=== PATIENT | female | born 1970 | race Caucasian/White ===

== ENCOUNTER 2016-09-27 10:36 | Emergency (ER) | payer OTHER ==
[~2016-09-27] VITALS: Ht 175.3 cm; Wt 109.0 kg
[~2016-09-27 10:36] MED LIST: ALEVE220 MG PO; CELEXA20 MG PO; DIOVAN80 MG PO; HYDROCHLOROTHIA25 MG PO; IBUPROFEN600 MG PO; LISINOPRIL20 MG PO; LOPRESSOR100 M1 PO; Levaquin PO; TOPIRAMATE50 MG PO; TORADOL10 MG PO; ULTRAM50 MG PO
[2016-09-27 12:10] LABS: HEMATOCRIT 36.7 % (36.0-46.0); MCH 29.9 PG (29.0-34.0); MCV 90.6 FL (83-99); MEAN PLAT.VOLUME 9.8 uM^3 (9.5-12.4); PLATELET COUNT 266 K/uL (156-360); RBC DIS.WIDTH-CV 13.1 % (11.8-14.6); RBC DIS.WIDTH-SD 42.2 % (39-53); RED BLOOD COUNT 4.05 M/uL (3.80-5.20); WHITE BLOOD COUNT 6.1 K/uL (4.1-10.2)
[2016-09-27 12:21] LABS: CHLORIDE 114 mEq/L (99-109); SODIUM 139 mEq/L (136-147)
[2016-09-27 12:23] LABS: GLUCOSE 89 mg/dL (70-99)
[2016-09-27 12:25] LABS: ANION GAP 6 MEQ/L (2-14)
[2016-09-27 12:27] LABS: GFR ESTIMATE (CALCULATED) > 59 mL/min/
[2016-09-27 12:28] LABS: UREA NITROGEN (BUN) 13 mg/dL (9-23)
[2016-09-27 13:41] LABS: ADD MIUA? YES; BILIRUBIN NEGATIVE; BLOOD NEGATIVE; COLOR STRAW ((YELLOW)); GLUCOSE (STRIP) NEGATIVE; KETONES NEGATIVE; LEUKOCYTES TRACE; NITRITE NEGATIVE; PROTEIN (STRIP) NEGATIVE; SPECIFIC GRAVITY 1.018 (1.000-1.030); UROBILINOGEN 0.2 MG/DL (0.2-1.0)
[2016-09-27 13:44] LABS: BACTERIA RARE /HPF; EPITHELIAL CELLS RARE /HPF; MUCUS TRACE /LPF; UCUL ADDED? NO; WHITE BLOOD CELLS 0-5 /HPF (0-5)
[2016-09-27 14:50] LABS: TOTAL BILIRUBIN 0.6 mg/dL (0.0-1.0)
[2016-09-27 14:51] LABS: ALKALINE PHOSPHATASE 78 IU/L (3-129)
[2016-09-27 14:53] LABS: DIRECT BILIRUBIN 0.2 mg/dL (0.0-0.3)
[2016-09-27 14:54] LABS: LIPASE 9 U/L (1.0-51.0)
[2016-09-27] MEDS ORDERED: TRAMADOL HCL50 MG PO (15:08)
[2016-09-27] MEDS ORDERED: SKELAXIN800 MG PO (15:08)
[2016-09-27] MEDS ORDERED: NAPROSYN500 MG PO (15:10)
[2016-09-27 15:27] VITALS: BP 143/100
== END 2016-09-27 15:29 | disposition home or self-care (01) ==
LOC: EME → EDBD 10:36 → EME 10:36
PROVIDERS: Physician Assistant
DX: S16.1XXA Strain of muscle, fascia and tendon at neck level, initial encounter (principal); S46.912A Strain of unspecified muscle, fascia and tendon at shoulder and upper arm level, left arm, initial encounter; K81.9 Cholecystitis, unspecified; V49.40XA Driver injured in collision with unspecified motor vehicles in traffic accident, initial encounter
CPT/HCPCS: 70450; 72050; 72125; 73030; 74177; 80048; 80076; 81003; 83690; 85027; 99281; 99283; J3360; J7030

== ENCOUNTER 2016-11-25 03:50 | Day surgery (SDC) | payer OTHER ==
[~2016-11-25] VITALS: Ht 182.9 cm; Wt 112.4 kg
[~2016-11-25 03:50] MED LIST changes: +NAPROSYN500 MG PO; +SKELAXIN800 MG PO; +TRAMADOL HCL50 MG PO
[2016-11-25 04:54] LABS: BASOPHIL COUNT 0.1 K/uL (0-0.1); EOSINOPHIL (%) 3.9 % (0-5); EOSINOPHIL COUNT 0.3 K/uL (0-0.3); HEMATOCRIT 36.7 % (36.0-46.0); IMMATURE GRANULOCYTE (%) 0.5 % (0.0-0.7); INSTRUMENT ABS NEUTROPHIL CT 4.2 K/uL; LYMPHOCYTE COUNT 2.4 K/uL (1.0-2.8); MCHC 33.2 G/DL (30.0-36.0); MCV 90.4 FL (83-99); MEAN PLAT.VOLUME 9.9 uM^3 (9.5-12.4); MONOCYTE (%) 7.6 % (3-12); MONOCYTE COUNT 0.6 K/uL (0-0.8); NEUTROPHIL (%) 55.6 % (45-76); NEUTROPHIL COUNT 4.2 K/uL (1.8-6.4); PLATELET COUNT 289 K/uL (156-360); RBC DIS.WIDTH-CV 13.2 % (11.8-14.6); RBC DIS.WIDTH-SD 43.8 % (39-53); RED BLOOD COUNT 4.06 M/uL (3.80-5.20); WHITE BLOOD COUNT 7.6 K/uL (4.1-10.2)
[2016-11-25 04:56] LABS: CHLORIDE 111 mEq/L (99-109); POTASSIUM 3.7 mEq/L (3.7-5.4); SODIUM 136 mEq/L (136-147)
[2016-11-25 04:58] LABS: GLUCOSE 98 mg/dL (70-99)
[2016-11-25 04:59] LABS: ANION GAP 7 MEQ/L (2-14)
[2016-11-25 05:00] LABS: TOTAL BILIRUBIN 0.3 mg/dL (0.0-1.0)
[2016-11-25 05:01] LABS: ALKALINE PHOSPHATASE 86 IU/L (3-129)
[2016-11-25 05:02] LABS: GFR ESTIMATE (CALCULATED) > 59 mL/min/
[2016-11-25 05:03] LABS: UREA NITROGEN (BUN) 13 mg/dL (9-23)
[2016-11-25 05:05] LABS: LIPASE 12 U/L (1.0-51.0)
[2016-11-25 05:50] LABS: ADD MIUA? YES; BILIRUBIN NEGATIVE; BLOOD SMALL; COLOR YELLOW ((YELLOW)); GLUCOSE (STRIP) NEGATIVE; KETONES NEGATIVE; LEUKOCYTES LARGE; NITRITE NEGATIVE; PROTEIN (STRIP) NEGATIVE; SPECIFIC GRAVITY 1.013 (1.000-1.030); UROBILINOGEN 0.2 MG/DL (0.2-1.0)
[2016-11-25 05:54] LABS: BACTERIA RARE /HPF; EPITHELIAL CELLS 1+ /HPF; MUCUS TRACE /LPF; RED BLOOD CELLS 20-30 /HPF (0-5); UCUL ADDED? NO
[2016-11-25] MEDS ORDERED: VALSARTAN160 MG PO (08:33)
[2016-11-25] MEDS ORDERED: HYDROCODON-ACE1 EAC7 PO (15:11)
[2016-11-25] MEDS ORDERED: OXYCODONE-APAP1 EACH PO (15:11)
[2016-11-25 17:04] VITALS: BP 142/82
[2016-11-25 23:28] VITALS: BP 117/70
[2016-11-26 04:20] VITALS: BP 120/76
[2016-11-26 07:07] VITALS: BP 121/76
[2016-11-26] MEDS ORDERED: TAMSULOSIN HCL0.4 MG PO (08:57)
[2016-11-26 11:34] VITALS: BP 137/85
[2016-11-26 15:34] VITALS: BP 174/94
[2016-11-26 20:07] VITALS: BP 153/85
[2016-11-27 00:36] VITALS: BP 124/64
[2016-11-27 04:28] VITALS: BP 146/93
[2016-11-27 07:12] VITALS: BP 133/90
== END 2016-11-27 12:36 | disposition home or self-care (01) ==
LOC: EME 03:50 → SDC 12:55 → 2SOUTH 15:01 → 2EASTP 15:01
PROVIDERS: Emergency Medicine
PROC: 0FT44ZZ Resection of Gallbladder, Percutaneous Endoscopic Approach (ICD-10-PCS; principal; 2016-11-25)
DX: K80.12 Calculus of gallbladder with acute and chronic cholecystitis without obstruction (principal); N13.2 Hydronephrosis with renal and ureteral calculous obstruction; I10 Essential (primary) hypertension; K21.9 Gastro-esophageal reflux disease without esophagitis; R11.2 Nausea with vomiting, unspecified; E66.9 Obesity, unspecified; Z68.33 Body mass index [BMI] 33.0-33.9, adult; R00.1 Bradycardia, unspecified; K44.9 Diaphragmatic hernia without obstruction or gangrene; K57.30 Diverticulosis of large intestine without perforation or abscess without bleeding
CPT/HCPCS: 74176; 76705; 80053; 81003; 83690; 85025; 88304; 93005; 99281; 99285; G0378; J0330; J1100; J1170; J1644; J1885; J2250; J2270; J2405; J2543; J2550; J2765; J3010; J7030; J7050; S0020

== ENCOUNTER 2017-08-07 20:28 | Emergency (ER) | payer OTHER ==
[~2017-08-07] VITALS: Ht 175.3 cm; Wt 109.8 kg
[~2017-08-07 20:28] MED LIST changes: +HYDROCODON-ACE1 EAC7 PO; +OXYCODONE-APAP1 EACH PO; +TAMSULOSIN HCL0.4 MG PO; +VALSARTAN160 MG PO
[2017-08-07 21:05] LABS: HEMATOCRIT 39.1 % (36.0-46.0); HEMOGLOBIN 12.7 G/DL (11.9-15.5); MCH 30.2 PG (29.0-34.0); MCHC 32.5 G/DL (30.0-36.0); MCV 92.9 FL (83-99); PLATELET COUNT 274 K/uL (156-360); RBC DIS.WIDTH-CV 13.6 % (11.8-14.6); RBC DIS.WIDTH-SD 46.4 % (39-53); RED BLOOD COUNT 4.21 M/uL (3.80-5.20); WHITE BLOOD COUNT 4.1 K/uL (4.1-10.2)
[2017-08-07 21:16] LABS: ALBUMIN 4.1 g/dL (3.2-4.8); CHLORIDE 114 mEq/L (99-109); POTASSIUM 3.6 mEq/L (3.7-5.4); SODIUM 137 mEq/L (136-147)
[2017-08-07 21:18] LABS: GLUCOSE 89 mg/dL (70-99)
[2017-08-07 21:19] LABS: TOTAL PROTEIN 7.7 g/dL (6.4-8.3)
[2017-08-07 21:20] LABS: TOTAL BILIRUBIN 0.4 mg/dL (0.0-1.0)
[2017-08-07 21:21] LABS: APPEARANCE SL.HAZY ((CLEAR)); BILIRUBIN NEGATIVE; BLOOD LARGE; COLOR AMBER ((YELLOW)); GLUCOSE (STRIP) NEGATIVE; KETONES NEGATIVE; LEUKOCYTES NEGATIVE; NITRITE NEGATIVE; PROTEIN (STRIP) 30; SPECIFIC GRAVITY 1.041 (1.000-1.030); UROBILINOGEN 0.2 MG/DL (0.2-1.0)
[2017-08-07 21:22] LABS: ALKALINE PHOSPHATASE 94 IU/L (3-129); GFR ESTIMATE (CALCULATED) > 59 mL/min/
[2017-08-07 21:23] LABS: UREA NITROGEN (BUN) 15 mg/dL (9-23)
[2017-08-07 21:24] LABS: AST (GOT) 14 IU/L (2-34)
[2017-08-07 21:25] LABS: ALT (GPT) 13 IU/L (3-49)
[2017-08-07 21:33] LABS: QUANTITATIVE HCG < 4.0 MIU/ML
[2017-08-07 21:55] LABS: AMORPHOUS URATES CRYSTALS 1+; BACTERIA NONE SEEN /HPF; EPITHELIAL CELLS RARE /HPF; MUCUS 2+ /LPF; RED BLOOD CELLS 15-20 /HPF (0-5); UCUL ADDED? NO; WHITE BLOOD CELLS RARE /HPF (0-5)
[2017-08-07 23:00] LABS: C DIFF TOXIN NEGATIVE (NEGATIVE)
[2017-08-07] MEDS ORDERED: COLACE100 MG PO (23:05)
[2017-08-07] MEDS ORDERED: BENTYL10 MG PO (23:06)
[2017-08-07 23:15] VITALS: BP 136/90
== END 2017-08-07 23:15 | disposition home or self-care (01) ==
LOC: EME 20:28
PROVIDERS: Physician Assistant
DX: R10.10 Upper abdominal pain, unspecified (principal); R19.7 Diarrhea, unspecified; I10 Essential (primary) hypertension; K21.9 Gastro-esophageal reflux disease without esophagitis; F32.9 Major depressive disorder, single episode, unspecified; F41.9 Anxiety disorder, unspecified
CPT/HCPCS: 74176; 80053; 81003; 84702; 85027; 87493; 87506; 99281; 99284